=== PATIENT | male | born 1975 | race Caucasian/White ===

== ENCOUNTER 2023-04-13 10:21 | Outpatient (OUT) | payer OTHER, SELFPAY ==
[2023-04-13 11:00] LABS: Basophils Absolute Auto 0.1 10^3/uL (0.0-0.1); Basophils Percent Auto 0.5 % (0.2-2.0); Eosinophils Absolute Auto 0.2 10^3/uL (0.0-0.7); Eosinophils Percent Auto 2.1 % (0.9-7.0); Hematocrit 45.6 % (42.0-54.0); Hemoglobin 15.8 g/dL (14.0-18.0); Immature Granulocytes Abs Auto 0.06 10^3/uL (0.00-0.03); Immature Granulocytes Pct Auto 0.6 % (0.0-0.5); Lymphocytes Absolute Auto 3.2 10^3/uL (1.2-3.8); Lymphocytes Percent Auto 32.7 % (20.5-60.0); Mean Corpuscular HGB Conc 34.6 g/dL (29.9-35.2); Mean Corpuscular Hemoglobin 28.3 pg (25.9-34.0); Mean Corpuscular Volume 81.7 fL (80.0-94.0); Mean Platelet Volume 9.7 fL (9.5-13.5); Monocytes Absolute Auto 0.6 10^3/uL (0.3-0.8); Monocytes Percent Auto 6.2 % (1.7-12.0); Neutrophils Absolute Auto 5.7 10^3/uL (1.4-6.5); Neutrophils Percent Auto 57.9 % (43.0-75.0); Platelet Count 256 10^3/uL (150-450); Red Blood Count 5.58 10^6/uL (4.70-6.10); Red Cell Distribution Width 13.2 % (11.0-15.0); White Blood Count 9.8 10^3/uL (4.0-11.0)
[2023-04-13 11:04] LABS: Estimated Average Glucose 97 mg/dL
[2023-04-13 11:20] LABS: Alanine Aminotransferase 42 U/L (16-63); Albumin Globulin Ratio 0.9; Albumin Level 3.7 g/dL (3.4-5.0); Alkaline Phosphatase 126 U/L (46-116); Anion Gap 11.8; Aspartate Amino Transferase 22 U/L (15-37); BUN Creatinine Ratio 18.5; Bilirubin Total 0.7 mg/dL (0.2-1.0); Calcium 8.8 mg/dL (8.5-10.1); Carbon Dioxide 27.2 mmol/L (21.0-32.0); Chloride 105 mmol/L (98-107); Chol HDL Ratio 4.2; Cholesterol 166 mg/dL (<=200); Estimated GFR (African America >60 (>=60); Estimated GFR (Non-African Ame >60 (>=60); Free T3 1.91 pg/mL (2.18-3.98); Globulin 4.2 g/dL; Glucose 99 mg/dL (74-106); HDL Cholesterol 40 mg/dL (40-60); LDL Cholesterol Calculated 106.6 mg/dL; Sodium 140 mmol/L (136-145); Thyroid Stimulating Hormone 1.379 uIU/mL (0.358-3.740); Total Protein 7.9 g/dL (6.4-8.2); Triglycerides 97 mg/dL (<=150); Uric Acid 7.1 mg/dL (3.5-7.2); VLDL CHOLESTEROL 19.4 mg/dL
[2023-04-13 11:51] LABS: Prostate Specific Antigen Scrn 0.78 ng/mL (<=4.00)
[2023-04-14 12:29] LABS: Insulin 34.5 uIU/mL (2.6-24.9)
== END 2023-04-13 10:22 ==
PROVIDERS: PCP Family Medicine; Visit Provider Family Medicine
DX: Z00.00 Encounter for general adult medical examination without abnormal findings (principal); Z12.5 Encounter for screening for malignant neoplasm of prostate
CPT/HCPCS: 36415; 80053; 80061; 83036; 83525; 83880; 84436; 84443; 84481; 84550; 85025; G0103

== ENCOUNTER 2023-04-14 12:14 | Outpatient (REF) | payer OTHER, SELFPAY ==
[2023-04-14 15:33] LABS: Occult Blood Negative
== END 2023-04-14 12:15 ==
LOC: LAB 12:14
PROVIDERS: PCP Family Medicine; Visit Provider Family Medicine
DX: Z00.00 Encounter for general adult medical examination without abnormal findings (principal)
CPT/HCPCS: G0328

== ENCOUNTER 2023-05-18 19:46 | Outpatient (OUT) | payer OTHER, SELFPAY | END 2023-05-18 19:47 | disposition home or self-care (01) | LOC: SLEEP 19:46 | PROVIDERS: PCP Family Medicine; Visit Provider Family Medicine | DX: G47.33 Obstructive sleep apnea (adult) (pediatric) (principal); F51.01 Primary insomnia | CPT/HCPCS: 95810 ==

== ENCOUNTER 2023-05-20 12:48 | Outpatient (OUT) | payer OTHER, SELFPAY | END 2023-05-20 12:49 | disposition home or self-care (01) | LOC: PST 12:48 | PROVIDERS: PCP Surgery; Visit Provider Surgery | DX: Z01.818 Encounter for other preprocedural examination (principal); Z12.11 Encounter for screening for malignant neoplasm of colon ==

== ENCOUNTER 2023-05-27 09:15 | Day surgery (SDC) | payer OTHER, SELFPAY ==
--- NOTE | 2023-05-27 | OP_ITS ---
OPERATION DATE: ??05/27/2023 PREOPERATIVE DIAGNOSIS:? Colorectal screening. POSTOPERATIVE DIAGNOSIS:? Normal colon. PROCEDURE:? Colonoscopy to cecum. SURGEON:? Cosme Romeo M.D. ANESTHESIA:? Monitored anesthesia care. ESTIMATED BLOOD LOSS:? Zero. INDICATIONS AND CONSENT:? Patient is a 48-year-old male presents for colorectal screening.? Indications, risks, benefits, alternatives of proceeding with colonoscopy were explained extensively to the patient, including the risks of bleeding, colon perforation or anesthetic complications.? All of his questions were answered.? Informed consent was obtained.? PROCEDURE:? Patient brought to the operating room, placed in the left lateral decubitus position.? Monitored anesthesia care was provided.? Rectal exam was performed which showed no masses or blood.? The scope was inserted into the anal canal.? Under direct visualization was advanced.? It was advanced to the cecum where cecal markings were clearly identified.? Upon withdrawal of the scope, mucosal surfaces were carefully examined.? There was noted to be a good prep.? There were no mass lesions or polyps.? No inflammatory changes or ulcerations.? No significant diverticulosis.? The scope was retroflexed in the anal canal.? There was no significant hemorrhoidal disease.? Scope was then withdrawn.? Patient tolerated procedure well.? Follow up colonoscopy should be in 10 years for screening.? CC:? Jai Barnes
[2023-05-27 09:33] VITALS: BP 143/95; PULSE 104; RESP 20; TEMP 36.2; O2SAT 95; BMI 49.9
[2023-05-27] MEDS: LACTATED RINGER'S SOLUTION 1,000 ML 50 ML IV (09:45)
[2023-05-27 11:09] VITALS: BP 169/114; PULSE 77; RESP 18; TEMP 36.6; O2SAT 95
[2023-05-27 11:25] VITALS: BP 179/97; PULSE 75; RESP 16; O2SAT 96
[2023-05-27 11:40] VITALS: BP 178/88; PULSE 78; RESP 18; O2SAT 96
== END 2023-05-27 11:45 | disposition home or self-care (01) ==
PROVIDERS: PCP Family Medicine; Visit Provider Surgery
PROC: (CPT 812; principal; 2023-05-27 12:05)
DX: Z12.11 Encounter for screening for malignant neoplasm of colon (principal); I10 Essential (primary) hypertension; E66.01 Morbid (severe) obesity due to excess calories; Z68.42 Body mass index [BMI] 45.0-49.9, adult; F17.290 Nicotine dependence, other tobacco product, uncomplicated; Z80.0 Family history of malignant neoplasm of digestive organs
CPT/HCPCS: 45378; J2704

== ENCOUNTER 2023-06-16 19:56 | Outpatient (OUT) | payer OTHER, SELFPAY | END 2023-06-16 19:57 | disposition home or self-care (01) | LOC: SLEEP 19:56 | PROVIDERS: PCP Family Medicine; Visit Provider Family Medicine | DX: G47.33 Obstructive sleep apnea (adult) (pediatric) (principal) | CPT/HCPCS: 95811 ==